=== PATIENT | female | born 2000 | race Caucasian/White ===

== ENCOUNTER → 2025-08-03 12:38 | Outpatient (REF) | payer OTHER, SELFPAY | LOC: HWRAD 12:38 | PROVIDERS: ATTENDING PHYSICIAN Nurse Practitioner Family; FAMILY PHYSICIAN Internal Medicine | DX: L70.8 Other acne (principal); L70.9 Acne, unspecified; L67.8 Other hair color and hair shaft abnormalities; L65.9 Nonscarring hair loss, unspecified | CPT/HCPCS: 76856 ==